=== PATIENT | male | born 2005 | race Caucasian/White ===

== ENCOUNTER 2024-01-19 17:07 | Emergency (ER) | payer BC ==
[2024-01-19] MEDS: Lidocaine 1% 20 ML MDV ONE (17:32)
[2024-01-19] MEDS: Lidocaine 1% 20 ML MDV INJECT ONE (17:32)
[2024-01-19] MEDS: Diphtheria,Pertussis(Acell),Tetanus Vaccine 0.5 ML Syringe IM ONE (17:39)
== END 2024-01-19 17:50 | disposition home or self-care (01) ==
LOC: KA.ED 17:07
DX: S61.213A Laceration without foreign body of left middle finger without damage to nail, initial encounter (principal); Z23 Encounter for immunization; W26.0XXA Contact with knife, initial encounter
CPT/HCPCS: 12001; 90471; 90715; 99282-25; 99283; J3490